=== PATIENT | female | born 1965 | race Caucasian/White ===

== ENCOUNTER → 2018-09-24 | Outpatient (CLI) | payer OTHER | LOC: M.RAD 14:18 | DX: N63.11 Unspecified lump in the right breast, upper outer quadrant (principal) ==

== ENCOUNTER → 2018-09-25 | Outpatient (CLI) | payer OTHER ==
--- NOTE | 2018-10-01 18:06 | PATH ---
[address] [address] PATHOLOGY RPT PROCEDURE Name: BRIELLE POE Room: [facility].#: [id number] Admission: 09/25/18 Date of : 63 Discharge: Report #: [id number] Path Case #: [id number] [facility] Accession Number: [id number] . 01 Material submitted: . PART A: RIGHT AXILLARY NODE PART B: RIGHT BREAST . 01 Clinical history: . A. 3.4 x 1.8 x 2.1 cm mass B. 4.0 x 3.4 x 3.8 cm mass, 10:00, 8 cm from nipple . 02 Diagnosis: A. Right axillary node, image guided core biopsy: - METASTATIC HIGH-GRADE CARCINOMA COMPATIBLE WITH PLEOMORPHIC LOBULAR CARCINOMA SPANNING AT LEAST 11 MM. - Fragments of benign skeletal muscle. See comment. . B. Right breast, 10:00, 8 cm from nipple, image-guided core biopsies: - PLEOMORPHIC LOBULAR CARCINOMA, HIGH GRADE (III OF III), SPANNING AT LEAST 11 MM. SEE COMMENT. (ARON:hilda; 09/30/2018) . . . QMS/09/30/2018 . 02 Comment: Specimen B: . Specimen type: Image-guided core biopsy Tumor site: Right breast 10:00, 8 cm from nipple Tumor quantitation: Approximately 95% of submitted tissues Histologic type: Pleomorphic lobular carcinoma Histologic grade: III of III Tubules, nuclei and mitoses: 3, 2, 3 LVSI: Not identified Microcalcifications: Not identified Markers: Breast tumor profile pending Block: B2 . In the right axilla node (A), there is very scant lymphoid tissue present without definite extranodal extension seen and the tumor has identical histologic features to that seen in specimen B with several foci suggesting lower grade lobular features. In the right breast biopsy (B), nearly all of the submitted tissues represents invasive neoplasm without non-neoplastic breast epithelial tissues seen. No DCIS or LCIS is seen. Properly controlled immunohistochemical stains performed [place] [address] PATHOLOGY RPT PROCEDURE Name: BRIELLE POE Room: [facility] KEVEN Nielsen#: [id number] Admission: 09/25/18 Date of : 63 Discharge: Report #: [id number] Path Case #: [id number] neoplastic cells to have the following characteristics supporting the classification: . E-cadherin: Negative. Keratin KEL: Positive. . Breast tumor profile studies are pending on B2 and will be the subject of an addendum report. Preliminary findings relayed to Debbi ([facility]) at approximately 10:15 on 09/29/2018. Specimens A and B reviewed with Dr. Jimmy Calvillo who agrees with the diagnoses. (ARON:hilda; 09/30/2018) . 02 Addendum: . Special studies report received from [facility], [address] [place] [address], [address], [place], [address], on case [id number], labeled with their number [id number], dated 10/01/2018. . Breast/Prognostic Marker Analysis . Specimen Site: Right Breast, 10:00 (Biopsy), Pleomorphic Lobular Carcinoma . Specimen ID #: [id number] . ER (Estrogen Receptor) Present/Positive Percent: 95.00% Analysis: Manual Comments: Staining Intensity: Moderate-strong. . VT (Progesterone Receptor) Present/Positive Percent: 70.00% Analysis: Manual Comments: Staining Intensity: Variable (weak-strong). . HER2 Not Over-Expressed Score: 1+ Analysis: Manual . Ki-67 High Proliferation Percent: 50.00% Analysis: Manual . Time to Fixation (Cold Ischemic Time): Immediate Duration of Fixation: Not Provided Type of Fixative: 10% [place] [address] PATHOLOGY RPT PROCEDURE Name: BRIELLE POE Room: [facility] Nielsen#: [id number] Admission: 09/25/18 Date of : 63 Discharge: Report #: [id number] Path Case #: [id number] . at [facility] [place]. Anastacio Montague M.D. Pathologist . . Methodology The HER2 Receptor protein expression is analyzed using the [place] HER2 rabbit monoclonal antibody (clone 4B5). This assay is used for diagnostic determination of the HER2 protein over-expression in paraffin embedded, formalin fixed breast cancer tissue on the [place] Benchmark. The specimen is processed using a polymer detection system. The membrane staining of the tumor is determined either by manual score or image analysis. This antibody is intended for in vitro diagnostic use. The score is reported as per package insert; 0, 1+, 2+, and 3+. This test is used for clinical purposes. . A rabbit monoclonal antibody (clone SP1) that recognized the Estrogen Receptor is used to perform immunohistochemistry on routinely fixed (formalin) paraffin embedded tissue on the [place] Benchmark. The specimen is processed using a polymer detection system. The percentage of stained tumor nuclei is determined either manually or by image analysis. This test is intended for in vitro diagnostic use. This test is used for clinical purposes. . A rabbit monoclonal antibody (clone 1E2) that recognized the Progesterone Receptor is used to perform immunohistochemistry on routinely fixed (formalin) paraffin embedded tissue on the [place] Benchmark. The specimen is processed using a polymer detection system. The percentage of stained tumor nuclei is determined either manually or by image analysis. This test is intended for in vitro diagnostic use. This test is used for clinical purposes. . A rabbit monoclonal antibody (clone 30-9) that recognized Ki67 is used to perform immunohistochemistry on routinely fixed (formalin) paraffin embedded tissue on the [place] Benchmark. The specimen is processed using a polymer detection system. The percentage of stained tumor nuclei is determined either manually or by image analysis. This test is intended for in vitro diagnostic use. This test is used for clinical purposes. . Intended Use: This antibody is intended for in vitro diagnostic (IVD) use. HER2 (4B5) is a rabbit monoclonal antibody intended for the semi-quantitative detection of HER2 antigen in sections of formalin-fixed, paraffin embedded normal and neoplastic tissue. . This antibody is intended for in vitro diagnostic (IVD) use. Estrogen Receptor (ER) (SP1) is a rabbit monoclonal antibody (IgG) [place] [address] PATHOLOGY RPT PROCEDURE Name: BRIELLE POE Room: [facility]#: [id number] Admission: 09/25/18 Date of : 63 Discharge: Report #: [id number] Path Case #: [id number] for the qualitative detection of estrogen receptor (ER) antigen in sections of formalin-fixed, paraffin-embedded tissue. ER is a rabbit monoclonal antibody that recognizes human estrogen receptor alpha. . This antibody is intended for in vitro diagnostic (IVD) use. Progesterone Receptor (VT) (1E2) is a rabbit monoclonal antibody (IgG) that is intended for the qualitative detection of progesterone receptor (VT) antigen in sections of formalin fixed, paraffin embedded tissue. VT is a rabbit monoclonal antibody that recognizes the A and B forms of the human progesterone receptor. . This antibody is intended for in vitro diagnostic (IVD) use. Ki-67 (30-9) is a rabbit monoclonal antibody (IgG) directed against C-terminal portion of Ki-67 antigen. Staining for Ki-67 can be used to aid in assessing the proliferative activity of normal and neoplastic tissue. Ki-67 is a nuclear protein expressed in proliferating cells. During the cell cycle, the Ki-67 antigen is present in the G1, S, G2 and M phase but is absent in the G0 (quiescent phase). . . Disclaimer: This Test was performed by [facility]. at [address], [place] [address], [place], [address]. . [facility] is a business unit of [facility]. a wholly-owned subsidiary of [employer]. . This assay has not been validated on decalcified tissues. Results should be interpreted with caution if this specimen was decalcified given the likelihood of false negativity on decalcified specimens. . Any image(s) that accompany this report is/are a insurance service representative image(s) only and should not be used to render a diagnosis. . This interpretation is contingent on the specimen and the clinical information received. . For any special tests/stains performed, known positive cells or tissues are tested with each marker and examined to ensure positivity. Positive and negative internal controls, if present, react appropriately. . This analysis is an adjunct to the evaluation of the referring physician and does not represent a final diagnosis. . The immunohistochemistry tests performed at [facility]. were validated on tissue fixed in 10% neutral buffered formalin. The performance characteristics of the tests performed on tissue processed in other [place] [address] PATHOLOGY RPT PROCEDURE Name: BRIELLE POE Room: [facility] Morales#: [id number] Admission: 09/25/18 Date of : 63 Discharge: Report #: [id number] Path Case #: [id number] . . HER2 testing at [facility] is performed in compliance with the 2018 updated ASCO/CAP Clinical Practice Guideline Focused Update. If the result is EQUIVOCAL (2+), it must be confirmed by an alternative assay such as FISH or Dual JOSÉ LUIS. REF: Hugo GUO, RICARDO Soto et al: Human Epidermal Growth Factor Receptor 2 Testing in Breast Cancer: ASCO/CAP Clinical Practice Guideline Focused Update. J Clin Oncol 36:4423-5282, 2018. . HER2 and ER/VT ASCO/CAP guidelines require fixation in neutral buffered formalin for a minimum of 6 and a maximum of 72 hours. Fixation times less than 6 hours may not adequately preserve cell proteins. Fixation times longer than 72 hours may cause excess cross-linking of proteins reducing the antigen available for staining. Either scenario can cause reduced staining; hence false negative results are possible and should be considered for these situations if the HER2 IHC score is less than 3+ or ER or VT is negative (no staining or <1% positive). It is recommended that specimens fixed longer than 72 hours with HER2 IHC scores less than 3+ be confirmed by HER2 FISH or Dual JOSÉ LUIS. The time from biopsy/excision to fixation in formalin (cold ischemic time) must be less than 1 hour. Time to fixation (cold ischemic time) greater than 1 hour should be interpreted with caution. HER2 testing, mainly HER2 by FISH, is particularly vulnerable since excessive cold ischemic time results in preferential loss of HER2 probe signals that may lead to false negative results. . SCORE STAINING PATTERN IN TUMOR CELLS INTERPRETATION RESULTS 0 No staining observed or incomplete, faint membrane staining in less than or equal to 10% of tumor cells. Negative 1+ Incomplete, faint membrane staining in greater than 10% of tumor cells. Negative 2+ Incomplete and/or weak/moderate circumferential membrane staining in greater than 10% of the invasive tumor cells or complete, circumferential, intense alternative assay staining in less than or equal to 10% of invasive tumor cells. Equivocal* *Must be confirmed by alternative assay (IHC/FISH/Dual JOSÉ LUIS) 3+ Intense, complete membrane staining in greater than 10% of tumor cells. Positive . A complete copy of the report is on file. . [employer] and [place] [address] PATHOLOGY RPT PROCEDURE Name: BRIELLE POE Room: [facility]#: [id number] Admission: 09/25/18 Date of : 63 Discharge: Report #: [id number] Path Case #: [id number] Inc[facility] at [address], [place] [address]. . ([facility] 10/01/2018) . LBQ/10/01/2018 Addendum Electronically Signed by Salbador Novoa MD, Pathologist . 02 Electronically signed: . Salbador Novoa MD, Pathologist NPI- [id number] . 01 Gross description: . A. Received in formalin labeled "Brielle Poe, right axilla node," are multiple needle cores of yellow-fung fibrofatty tissue measuring 1.3 x 0.5 x 0.2 cm in aggregate dimensions. The tissue is submitted in its entirety in cassettes A1 through A3. The cold ischemic time is less than 1 minute. The total formalin fixation time is 26 hours and 35 minutes. . B. Received in formalin labeled "Brielle Poe, right breast 10:00 8 cm FN," are multiple needle cores of yellow-fung fibrofatty tissue measuring 1.1 x 0.4 x 0.2 cm in aggregate dimensions. The tissue is submitted in its entirety in cassettes B1 through B3. The cold ischemic time is less than 1 minute. The total formalin fixation time is 28 hours and 5 minutes. (TSD; 09/25/2018) TOB/TOB . 02 Pathologist provided ICD-10: C77.3, C50.011 . 02 CPT . 277002, 345583, Y04952, J11625 Specimen Comment: A courtesy copy of this report has been sent to Specimen Comment: [phone], , , . Specimen Comment: Report sent to ,DR LIND,DR JOSUE / DR BURGESS Specimen Comment: A duplicate report has been generated due to demographic updates. Performed at: 01 [facility] [address], [place], [place] [id number] MD Avelino Matthews MD Phone: [phone] Performed at: [address] [facility] [address] [place], [place] [id number] MD Salbador Novoa MD Phone: [phone]
== END | disposition home or self-care (01) ==
LOC: M.ULTRA 12:38
DX: C50.911 Malignant neoplasm of unspecified site of right female breast (principal); C77.3 Secondary and unspecified malignant neoplasm of axilla and upper limb lymph nodes; R92.1 Mammographic calcification found on diagnostic imaging of breast; R59.0 Localized enlarged lymph nodes

== ENCOUNTER → 2018-10-10 | Outpatient (CLI) | payer OTHER ==
--- NOTE | 2018-10-12 15:21 | ONC ---
[place] [address] RADIATION ONCOLOGY NOTE Name: MANOJ POE Room: [facility]#: [id number] Admission: 10/10/18 Attend Phys: Wesley Segura MD Discharge: Date of : 63 Report #: [id number] THIS REPORT FOR: //name// CC: Wesley Meneses MD DATE OF CONSULTATION: 10/10/2018 REFERRING PHYSICIANS: Dr. Rhodes, Dr. Junie Ferrera and Dr. Flavio Meneses. [facility] phone is [phone]. PRIMARY SITE AND HISTOPATHOLOGY: The patient has a lobular cancer involving the right breast and also the right axillary lymph node area. The patient, at this point, has at least a IIb breast cancer. HISTORY OF PRESENT ILLNESS: The patient is a 53-year-old woman who palpated a mass involving the right breast and right axilla around July 2018. She went on to undergo a bilateral mammogram on 09/24/2018, which revealed a lobular mass involving the upper outer right breast that measured about 3.9 cm. x 4.3 cm. She had a right breast ultrasound on 09/24/2018, which revealed a right breast mass that measured about 4.5 cm. x 3.7 cm. x 3.1 cm as well as abnormal lymph nodes in the axilla that measured about 3.5 cm. x 2 cm. The patient went on to undergo a biopsy of the right breast mass and the right axillary lymph node on 09/25/2018 and the pathology revealed a pleomorphic lobular carcinoma that was high grade (grade 3/3)involving the right breast and there was also involvement of the right axillary lymph node consistent with metastatic high-grade carcinoma that measured at least 1.1 cm. The breast cancer was 95% estrogen receptor positive, 70% progesterone receptor positive and HER2/aguila negative. The patient indicated that the tentative plan is to proceed with neoadjuvant chemotherapy and then proceed with surgical resection of the breast. She presents to discuss the role of radiation therapy. PAST MEDICAL HISTORY AND PAST SURGICAL HISTORY: She had seizures from age 8 to age 12 and the seizures stopped after that time. MEDICATIONS: None. ALLERGIES: PHENOBARBITAL. OBSTETRICS AND GYNECOLOGIC HISTORY: Menarche at age 12, menopause around 2006 and she is 2, para 2. FAMILY HISTORY: Maternal aunt had lymphoma. [place] [address] RADIATION ONCOLOGY NOTE Name: MANOJ POE Room: [facility]#: [id number] Admission: 10/10/18 Attend Phys: Wesley Segura MD Discharge: Date of : 63 Report #: [id number]. Paternal grandfather had bladder cancer. Paternal uncle had pancreatic cancer and another paternal uncle had prostate cancer and a male cousin had chronic myeloid leukemia. 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 She is . She has a son and a daughter. The son is 36 years of age and the daughter is 26 years of age. Ethanol: she rarely drinks alcohol-containing beverages. Cigarettes: she does not smoke. REVIEW OF SYSTEMS: GENERAL: The patient denied having any fevers or chills. SKIN: The patient denied having color changes or itching. LYMPH NODES: The patient had some enlarged right axillary lymph nodes. ENDOCRINE: She denied having any hot or cold intolerance. HEMATOLOGY AND IMMUNOLOGY: The patient denied having any anemia. MUSCULOSKELETAL: She denied having any arthritis, painful or swollen joints. HEAD AND NECK: She denied having any headaches, migraines. RESPIRATORY: She denied having any shortness of breath. CARDIOVASCULAR: She denied having any palpitations. GASTROINTESTINAL: She denied having any nausea or vomiting. NEUROLOGIC: She denied having any focal weakness. PHYSICAL EXAMINATION: With my nurse, Zoey Cerna, present: VITAL SIGNS: Height 5 feet 5 inches, weight 218 pounds. Blood pressure 173/77, which the patient attributed partly to being at the physician's office, pulse 72, respirations 16, oxygen saturation 97%. GENERAL AND PSYCHIATRIC: The patient was alert, oriented, and in no acute distress. LYMPH NODES: She has palpable right axillary lymphadenopathy that measured about 2.5 cm. x 2 cm. EYES: Pupils were equal, round, reactive to light and accommodation. Extraocular movements were intact. HEAD, EARS, NOSE AND THROAT: Mouth had no visible lesions. HEART: Had a regular rate and rhythm without murmur. LUNGS: were clear to auscultation. BREASTS: Right breast had a palpable mass in the upper outer quadrant that measured about 5.5 cm. x 3 cm. x 2 cm. ABDOMEN: Not tender. Spleen was not palpable. Liver was at the costal margin. EXTREMITIES: Had no clubbing, cyanosis or edema. NEUROLOGIC: Cranial nerves II to XII were intact. Sensation was intact. The patient had 5/5 strength in her extremities. ASSESSMENT AND PLAN: The patient has a locally [place] [address] RADIATION ONCOLOGY NOTE Name: MANOJ POE Room: [facility] Morales#: [id number] Admission: 10/10/18 Attend Phys: Wesley Segura MD Discharge: Date of : 63 Report #: [id number] She is being set up for neoadjuvant chemotherapy followed by surgical resection and she was then offered postoperative radiation therapy to either the breast or the chest wall. If she does have a good response to the chemotherapy and she undergoes breast conservation therapy, the efficacy of radiation therapy can be found in the study where Dr. Tucker was the author in 2003 in the Journal of Clinical Oncology. In that study, 340 patients treated with neoadjuvant chemotherapy and breast conservation therapy had a local failure rate of 5% in 5 years, which was deemed to be reasonable. If she undergoes mastectomy, she will be offered radiation therapy to the chest wall and regional lymph nodes, which is based on the Setswana 82c study, which randomized postmenopausal patients between tamoxifen alone versus tamoxifen and radiation therapy. The local failure rate was reduced from 35% to 8% when they received radiation therapy and the overall survival was increased from 36% to 45%. So, the risks, benefits, logistics of radiation therapy were explained to the patient in detail. The patient gave her witnessed, informed consent to proceed with radiation therapy. She is proceeding with neoadjuvant chemotherapy followed by surgery, so she was asked to make a followup appointment to see me in about 3-5 months. At that time, the timing of her radiation therapy can be determined. Thank you very much for this consult. <ELECTRONICALLY SIGNED> By: Wesley Segura MD 10/12/18 1521 [id number] [id number] fifi Garcia
== END ==
LOC: M.RTH 04:34
DX: C50.911 Malignant neoplasm of unspecified site of right female breast (principal); Z88.8 Allergy status to other drugs, medicaments and biological substances; Z72.89 Other problems related to lifestyle

== ENCOUNTER → 2018-10-15 | Outpatient (CLI) | payer OTHER ==
[~2018-10-15] MED LIST: TRAMADOL 50 MG50 MG PO
--- NOTE | 2018-10-15 15:06 | 2DMMODE ---
[place] [address] 2 D/M-MODE ECHOCARDIOGRAM Name: MANOJ POE Room: [facility]#: [id number] Admission: 10/15/18 Attend Phys: Junie Ferrera, Discharge: Date of : 63 Date of Service: 10/15/18 1506 Report #: [id number] THIS REPORT FOR: //name// APPROVED REPORT Study performed: 10/15/2018 13:43:24 EXAM: Limited 2D Echocardiogram Patient Location: Out-Patient BSA: 2.04 HR: 93 bpm BP: 160/65 mmHg Other Information Study Quality: Good Indications Chemo 2D Dimensions IVSd: 10.80 (7-11mm) LVDd: 43.27 mm PWd: 9.79 (7-11mm) LVDs: 23.75 (25-40mm) Aortic Root: 23.93 mm Left Ventricle The left ventricle is normal size. There is normal LV segmental wall motion. There is normal left ventricular wall thickness. Left ventricular systolic function is normal. The left ventricular ejection fraction is within the normal range. LVEF is 55-60%. Right Ventricle The right ventricle is normal size. The right ventricular systolic function is normal. Atria The left atrium size is normal. The right atrium size is normal. Aortic Valve The aortic valve is normal in structure. Mitral Valve The mitral valve [place] [address] 2 D/M-MODE ECHOCARDIOGRAM Name: MANOJ POE Room: [facility]#: [id number] Admission: 10/15/18 Attend Phys: Junie Ferrera, Discharge: Date of : 63 Date of Service: 10/15/18 1506 Report #: [id number] Tricuspid Valve The tricuspid valve is normal in structure. Pulmonic Valve Pulmonic valve is not well visualized. Great Vessels The aortic root is normal in size. Pericardium There is no pericardial effusion. <Conclusion> Left ventricular systolic function is normal. The left ventricular ejection fraction is within the normal range. <ELECTRONICALLY SIGNED> By: Hussain Ohara MD, FACC 10/15/18 1506 1506 150 Hussain Ohara MD, FACC /INF
== END ==
LOC: M.MRI 10-14 16:30 → M.CRD 13:35 → M.MRI 14:30
DX: Z51.11 Encounter for antineoplastic chemotherapy (principal); C50.411 Malignant neoplasm of upper-outer quadrant of right female breast; Z17.0 Estrogen receptor positive status [ER+]

== ENCOUNTER → 2018-10-16 | Day surgery (SDC) | payer OTHER ==
[~2018-10-16] MED LIST changes: +ONDANSETRON HCL4 M2 PO
--- NOTE | 2018-10-16 14:36 | OP ---
[address] [address] OPERATIVE REPORT Name: MANOJ POE Room: [facility].#: [id number] Admission: 10/16/18 Attend Phys: Junie Ferrera DO Discharge: Date of : 63 Report #: [id number] THIS REPORT FOR: //name// CC: Junie Rhodes DO DICTATED BY: Tobi Alcantara DO PREOPERATIVE DIAGNOSIS: Right breast cancer. POSTOPERATIVE DIAGNOSIS: Right breast cancer. SURGEONS: Junie Ferrera DO, and Tobi Alcantara, PGY2. BONDING MACHINE OPERATOR: Royal, PGY-1. OPERATION PERFORMED: Left internal jugular ultrasound-guided chemo port placement under fluoroscopy with surgeon's interpretation of images. ANESTHESIA: General and local. ESTIMATED BLOOD LOSS: 5. SPECIMENS REMOVED: None. FINDINGS: Normal neck anatomy. COMPLICATIONS: None. IMPLANTS: Right internal jugular PowerPort. HISTORY OF PRESENT ILLNESS: The patient is a 53-year-old female with recent diagnosis of right breast cancer and it was decided that she should undergo neoadjuvant chemotherapy and therefore needed chemo port placement. Risks and complications were discussed at length and she agreed to proceed with surgery. DESCRIPTION OF PROCEDURE: After consent was obtained, the patient was taken to the operating room and placed in supine position. SCDs applied to bilateral lower extremities, safety belt placed across the patient's waist. Two grams Ancef given for surgical prophylaxis. General anesthesia was administered without any complication. The patient was intubated and then prepped and draped in a standard sterile fashion. After timeout was performed, the patient was placed in a slight 30 degrees of Trendelenburg. Ultrasound was used to visualize the left internal jugular vein. It could be seen just superior to the carotid artery. Introducer needle was inserted into the vein. There was good venous outflow. Wire was passed through the needle. [place] [address] OPERATIVE REPORT Name: MANOJ POE Room: [facility]#: [id number] Admission: 10/16/18 Attend Phys: Junie Ferrera DO Discharge: Date of : 63 Report #: [id number] and the wire could be seen crossing over into the superior vena cava. At this time, attention was turned towards creating a subcutaneous pocket in the left chest. A 15 blade scalpel was used to make a 4 cm incision in a transverse fashion. Electrocautery was used to dissect down to the level of pectoralis fascia. Once the pocket was created with blunt dissection, attention was turned back towards the neck. The breakaway dilator sheath was advanced over the wire and into the left internal jugular vein. The catheter was broken away as the PowerPort catheter was inserted. The catheter was then tunneled over the clavicle and into the previously created pocket in the left chest. PowerPort was then sutured in place and the catheter was attached to the PowerPort. PowerPort was flushed with normal saline after being aspirated, showing a good venous blood return. 3 mL of premixed heparin solution was then injected into the PowerPort. Fluoroscopy was again obtained, showing good position just above the superior vena cava. There were no kinks in the tubing. The port was placed within the subcutaneous pocket. The subcutaneous tissue was closed with 3-0 Vicryl and skin with 4-0 Monocryl. Sterile dressing was applied over top. The patient tolerated the procedure well. Postoperative chest x-ray revealed that everything was in good position. There was no evidence of pneumothorax and the tip of the catheter was seen to be intact in the superior vena cava. <ELECTRONICALLY SIGNED> By: Junie Ferrera DO 10/16/18 1436 1307 1329Chdary Ferrera DO /nt
== END | disposition home or self-care (01) ==
LOC: M.SUR
DX: Z45.2 Encounter for adjustment and management of vascular access device (principal); C50.911 Malignant neoplasm of unspecified site of right female breast; Z88.8 Allergy status to other drugs, medicaments and biological substances

== ENCOUNTER → 2018-10-22 | Outpatient (CLI) | payer OTHER | END | disposition home or self-care (01) | LOC: M.ULTRA 12:49 | DX: N63.20 Unspecified lump in the left breast, unspecified quadrant (principal); Z88.8 Allergy status to other drugs, medicaments and biological substances ==

== ENCOUNTER → 2018-10-28 | Outpatient (CLI) | payer OTHER ==
--- NOTE | 2018-10-27 11:06 | PATH ---
[address] [address] PATHOLOGY RPT PROCEDURE Name: BRIELLE POE Room: [facility] M.R.#: [id number] Admission: Date of : 63 Discharge: Report #: [id number] Path Case #: [id number] [facility] Accession Number: [id number] . 01 Material submitted: . LEFT BREAST . 01 Clinical history: . 1.7 x 1.1 x 1.4 cm 12:00, 3 cm from nipple. Hx lobular in right breast . 02 Diagnosis: Left breast, 12:00, 3 cm from nipple, image-guided core biopsies: - Fibroadenoma(s) with calcifications and benign breast tissue with usual ductal epithelial hyperplasia, duct ectasia, fibrosis, mild chronic inflammation and luminal calcifications, negative for atypia. See comment. . (ARON:at;10/24/2018) QTA/10/24/2018 . 02 Comment: Multiple cores show fibroadenoma, possibly several immediately adjacent. Reviewed with Dr. Jimmy Calvillo who agrees with the diagnosis. . (ARON:at;10/24/2018) . 02 Electronically signed: . Salbador Novoa MD, Pathologist NPI- [id number] . 01 Gross description: . Received in formalin labeled "Brielle Poe, left breast 12:00, 3 cm fn," are multiple needle cores of yellow-fung fibrofatty tissue measuring 2.7 x 2.8 x 0.5 cm in aggregate dimensions. The tissue is submitted in its entirety in cassettes A1 through A3. The cold ischemic time is less than 1 minute. The total formalin fixation time is 28 hours and 44 minutes. (TSD/at; 10/22/2018) TOB/TOB . 02 Pathologist provided ICD-10: D24.2, N62, N60.42, N60.32, N61.0 . 02 CPT . 688133 Specimen Comment: A courtesy copy of this report has been sent to Specimen Comment: [phone], , , . Specimen Comment: Report sent to ,DR LIND,DR BROUSSARD / [place] [address] PATHOLOGY RPT PROCEDURE Name: BRIELLE POE Room: [facility].#: [id number] Admission: Date of : 63 Discharge: Report #: [id number] Path Case #: [id number] Specimen Comment: A duplicate report has been generated due to demographic updates. Performed at: 01 [facility] [address], [place], [place] [id number] MD Avelino Matthews MD Phone: [phone] Performed at: [address] [facility] [address] [place]SE[place] Guevara [id number] MD Salbador Novoa MD Phone: [phone]
[~2018-10-28] MED LIST changes: -ONDANSETRON HCL4 M2 PO
== END ==
LOC: M.NUC 11:05
DX: C50.411 Malignant neoplasm of upper-outer quadrant of right female breast (principal); Z17.0 Estrogen receptor positive status [ER+]

== ENCOUNTER 2018-10-31 19:50 | Inpatient (IN) | payer OTHER ==
[~2018-10-31] VITALS: Ht 165.1 cm; Wt 99.8 kg
[2018-10-31 20:01] VITALS: BP 197/76
[2018-10-31] MEDS ORDERED: ONDANSETRON HCL4 M2 PO (20:07)
[2018-10-31 21:01] LABS: HEMATOCRIT 34.3 % (37.0-47.0); HEMOGLOBIN 11.5 gm/dL (12.0-15.0); MCH 28.1 pg (26.0-34.0); MCHC 33.5 g/dL (28.0-37.0); MCV 83.9 fL (80.0-100.0); MPV 9.5 fl. (7.2-11.1); NUCLEATED RBCS 0 /100WBC; PLATELET COUNT* 93 thou/uL (150-400); RBC 4.08 mil/uL (4.20-5.00); WBC 2.6 thou/uL (4.0-11.0)
[2018-10-31 21:09] LABS: ANION GAP 4 mmol/L (7-16); BUN 14 mg/dL (7-18); CALCIUM 8.4 mg/dL (8.5-10.1); CHLORIDE 101 mmol/L (98-107); CO2 26 mmol/L (21-32); CREATININE 0.8 mg/dL (0.6-1.3); GLUCOSE 118 mg/dL (70-99); POTASSIUM 3.6 mmol/L (3.5-5.1); PROTIME 10.5 Seconds (9.20-11.50); SODIUM 131 mmol/L (136-145)
[2018-10-31 21:19] LABS: ALKALINE PHOSPHATASE 122 U/L (46-116); LIPASE 166 U/L (73-393); NT-PRO BRAIN NAT PEPTIDE 86 pg/mL (<300); SGOT 12 U/L (15-37); SGPT 19 U/L (30-65); TOTAL BILIRUBIN 0.2 mg/dL (<0.1-1.0); TOTAL PROTEIN 7.3 g/dL (6.4-8.2); TROPONIN-I LEVEL <0.06 ng/mL (<0.06)
[2018-10-31 21:33] LABS: ABSOLUTE EOSINOPHILS 0.1 thou/uL (0.0-0.7); ABSOLUTE LYMPHOCYTES 0.8 thou/uL (0.8-5.3); ABSOLUTE MONOCYTES 0.3 thou/uL (0.0-1.2); ABSOLUTE NEUTROPHILS 1.4 thou/uL (1.6-8.1); ATYPICAL LYMPHS 1 %; METAMYELOCYTES 5 %; MYELOCYTES 2 %; PLATELET ESTIMATE DECREASED
[2018-10-31 22:01] LABS: URINE BILIRUBIN NEGATIVE (Negative); URINE BLOOD 1+ (Negative); URINE CLARITY CLEAR; URINE COLOR YELLOW; URINE GLUCOSE-RANDOM NEGATIVE (Negative); URINE KETONES NEGATIVE (Negative); URINE LEUKOCYTES-REFLEX NEGATIVE (Negative); URINE NITRITE-REFLEX NEGATIVE (Negative); URINE PROTEIN NEGATIVE (Negative); URINE UROBILINOGEN 0.2 E.U./dl (0.2-1.0)
[2018-10-31 22:15] LABS: SQUAMOUS 4-10 Moderate /LPF (0-3)
[2018-10-31 22:16] LABS: URINE RBC 0-2 Rare /HPF (0-2)
[2018-10-31 22:17] LABS: BACTERIA-REFLEX None Seen /HPF (None Seen); MUCUS None Seen strn/LPF (None Seen)
[2018-10-31 22:18] LABS: CASTS None Seen /LPF (None Seen); CRYSTALS None Seen /LPF (None Seen)
[2018-10-31 22:19] LABS: URINE WBC-REFLEX None Seen /HPF (0-5)
[2018-10-31 22:59] VITALS: BP 147/60
[2018-10-31 23:45] VITALS: BP 126/60
[2018-11-01 04:00] VITALS: BP 149/78
--- NOTE | 2018-11-01 05:13 | NUR ---
RECEIVED REPORT FROM ED RN. PT TRANSFERRED TO 223. PT A&OX4. VSS. ADMISSION HISTORY & PHYSICAL ASSESSMENT COMPLETED AND CHARTED. FALL FORM SIGNED. ORIENTED TO ROOM & CALL LIGHT. PT ON RA WITH 95% O2 SAT. PT TRACING SR ON TELE. PT DENIES ANY PAIN OR DISCOMFORT. PT RESTED WELL ON BED. CALL LIGHT WITHIN REACH.
[2018-11-01 08:00] VITALS: BP 171/78
[2018-11-01 11:55] VITALS: BP 128/68
[2018-11-01 16:20] VITALS: BP 145/81
--- NOTE | 2018-11-01 18:42 | NUR ---
ASSUMED PT CARE AT 0730, FULL ASSESMENT DONE CHARTED, PT A/O X4, DENIES PAIN, WANTS TO GO HOME. PT HOPEFUL TO DISCHARGE SATURDAY. UP AD CARO, VSS, AFEBRILE, SR ON THE MONITOR.
[2018-11-02] VITALS: BP 157/71
[2018-11-02 04:00] VITALS: BP 143/69
--- NOTE | 2018-11-02 04:14 | NUR ---
VITALS WNL. SEE MAR. SEE CHARTING. HOURLY ROUNDING FOR SAFETY.
[2018-11-02 07:35] VITALS: BP 173/78
[2018-11-02 08:14] VITALS: BP 173/78
--- NOTE | 2018-11-03 10:58 | EKG ---
[place] [address] ELECTROCARDIOGRAM REPORT Name: MANOJ POE Room: [address] M.R.#: [id number] Admission: 10/31/18 Attend Phys: Jorge Shetty MD Discharge: 11/02/18 Date of : 63 Report #: [id number] THIS REPORT FOR: //name// [facility] ED Test Date: 2018-10-31 Test Time: 20:08:11 Pat Name: MANOJ POE Department: Room: [facility] Gender: F Manuscript Reader: : 1965 Requested By: Jatin Mejia Order Number: [id number] MD: Jayson Gutiérrez Measurements Intervals [place] Rate: 97 P: 37 NE: 153 QRS: 61 QRSD: 81 T: 61 QT: 330 QTc: 419 Interpretive Statements Sinus rhythm No previous ECG available for comparison Electronically Signed On 11-03-2018 10:58:46 CASH PROCESSOR by Jayson Gutiérrez [email or web address] <ELECTRONICALLY SIGNED> By: Jayson Gutiérrez MD, [facility] 11/03/18 1058 07 07 Jayson Gutiérrez MD, FACC /EPI
== END 2018-11-02 09:35 | disposition home or self-care (01) | DRG 810 ==
LOC: M.ERS 19:50 → M.TBA-ER 21:44 → M.2W 23:01
PROVIDERS: Family Medicine; ADMIT Internal Medicine
DX: D70.9 Neutropenia, unspecified (principal); R50.81 Fever presenting with conditions classified elsewhere; I10 Essential (primary) hypertension; C50.919 Malignant neoplasm of unspecified site of unspecified female breast; Z88.8 Allergy status to other drugs, medicaments and biological substances; Z92.21 Personal history of antineoplastic chemotherapy

== ENCOUNTER → 2018-12-04 | Outpatient (CLI) | payer OTHER ==
[~2018-12-04] MED LIST changes: +ONDANSETRON HCL4 M2 PO
== END ==
LOC: M.ULTRA 12:40
DX: C50.411 Malignant neoplasm of upper-outer quadrant of right female breast (principal); D64.81 Anemia due to antineoplastic chemotherapy; T45.1X5A Adverse effect of antineoplastic and immunosuppressive drugs, initial encounter; L27.1 Localized skin eruption due to drugs and medicaments taken internally; Z17.0 Estrogen receptor positive status [ER+]

== ENCOUNTER → 2019-01-13 | Outpatient (CLI) | payer OTHER | LOC: M.ULTRA 13:00 | DX: C50.411 Malignant neoplasm of upper-outer quadrant of right female breast (principal); N63.11 Unspecified lump in the right breast, upper outer quadrant; D64.81 Anemia due to antineoplastic chemotherapy; T45.1X5A Adverse effect of antineoplastic and immunosuppressive drugs, initial encounter; Z17.0 Estrogen receptor positive status [ER+] ==

== ENCOUNTER → 2019-03-24 | Outpatient (CLI) | payer OTHER ==
[~2019-03-24] MED LIST changes: +NORVASC5 MG PO
== END ==
LOC: M.MRI 16:12
DX: C50.911 Malignant neoplasm of unspecified site of right female breast (principal)

== ENCOUNTER 2019-04-24 08:31 | Observation (INO) | payer OTHER ==
[~2019-04-24] VITALS: Ht 165.1 cm; Wt 102.1 kg
--- NOTE | ~2019-04-24 | OP ---
[address] [address] OPERATIVE REPORT Name: MANOJ POE Room: [address] Bart Nielsen#: [id number] Admission: 04/24/19 Attend Phys: Junie Ferrera DO Discharge: 04/25/19 Date of : 63 Report #: [id number] THIS REPORT FOR: //name// CC: Junie Rhodes DATE OF SERVICE: 04/24/2019 PREOPERATIVE DIAGNOSIS: Right breast lobular carcinoma with metastasis to the lymph nodes. POSTOPERATIVE DIAGNOSIS: Right breast lobular carcinoma with metastasis to the lymph nodes. FINDINGS: Multiple palpable lymph nodes in the right axilla. SURGEON: Junie Ferrera DO. COSURGEON: Dr. Win and Dr. Martinez. PROCEDURE PERFORMED: Bilateral simple mastectomies, right axillary sentinel lymph node biopsy of the clipped and wire localized axillary lymph node with completion right axillary lymph node dissection. ANESTHESIA: General and local. ESTIMATED BLOOD LOSS: 100 mL. SPECIMENS: Left breast, right breast, right sentinel lymph node, right clipped axillary lymph node and completion axillary node dissection. COMPLICATIONS: None. CONDITION: Stable. DISPOSITION: PACU to the floor. DRAINS: Two drains on the right. The white 15-Congolese drain is in the axilla. The clear 15-Congolese drain is in the breast subcutaneous flap. Left breast has a 15-Congolese KAIDEN drain in the subcutaneous flap. HISTORY OF PRESENT ILLNESS: The patient is a very pleasant female who is well known to me from her previous diagnosis of right breast cancer, which had been found to be metastatic to the axilla. She underwent biopsies of both these areas and when they returned as positive, she then underwent neoadjuvant chemotherapy. She returned to my office after completing her neoadjuvant [facility] [address] [place] [address] OPERATIVE REPORT Name: DEEPIKAMANOJ RON Room: [address] ANDRES Nielsen#: [id number] Admission: 04/24/19 Attend Phys: Junie Ferrera DO Discharge: 04/25/19 Date of : 63 Report #: [id number] chemotherapy. Repeat radiological studies were completed, which showed great improvement in the mass of the breast and near resolution of any enlarged lymph nodes in the right axilla. She was then consented for bilateral mastectomy. The case was discussed with Oncology as to the axilla. They felt that it would be appropriate to attempt a sentinel lymph node as well as taking the clipped node for frozen section. If these had returned as negative, we would have completed our axillary node dissection. These returned as positive and they recommended a completion axillary node dissection. Risks and benefits were discussed with the patient in detail and she agreed to proceed. DESCRIPTION OF PROCEDURE: The patient was initially seen in preop and then taken to Radiology where she underwent a right breast nuclear medicine injection and wire localization of the previously clipped right axillary node. She then returned to preop where she underwent informed consent. She was then taken to the OR where she was laid supine on the operating room table. SCDs were placed on bilateral lower extremities. Ancef was given in the perioperative period. General anesthesia was induced by Anesthesia without difficulty. Rosa catheter was placed utilizing sterile technique. Bilateral breasts and axillae were prepped and draped in standard sterile fashion. Timeout was performed to verify patient and procedure. I began by marking out the borders of the sternum, the clavicles, the latissimus dorsi in the inframammary folds. Bilateral elliptical incisions were then marked on the breast. We started on the left side, which was the noncancerous side. A 20 mL of 0.5% Marcaine were injected in the area of the planned incisions. Incisions were made with #15 blade. PlasmaBlade was used for hemostasis. I then began forming flaps. I initially moved superiorly to the clavicle, medially to the sternum, inferiorly to the inframammary fold and laterally to the latissimus dorsi. Breast tissue was then gently elevated and the breast tissue was amputated from the underlying pectoralis fascia utilizing the PlasmaBlade. Specimen was marked in the superior and lateral direction, was handed off for permanent pathology. Hemostasis was assured within our flaps. Wound was then gently packed with a moistened lap while we turned our attention to the right breast. We proceeded in the same fashion. A 20 mL of 0.5% Marcaine were injected in the area of the planned incision. Incision was made with #15 blade. PlasmaBlade was used for hemostasis. Flaps were created superiorly to the clavicle, medially to the sternum, inferiorly to the inframammary fold and laterally to the latissimus dorsi. Breast was again amputated from the underlying pectoralis fascia utilizing PlasmaBlade. Specimen was marked in the superior and lateral direction. Before it was handed off, the nipple was interrogated, our highest uptake was approximately 9200 along the breast. Of note, 7 mL of Lymphazurin had been injected in the periareolar area prior to starting the case. We then turned our attention to the right axilla. I initially proceeded with the sentinel lymph node. Neoprobe was brought into the field and the right axilla was interrogated. The sentinel lymph node was quite superficial and was easily identified. It was very soft on palpation. It was dissected free from the surrounding tissues utilizing PlasmaBlade and was immediately handed off to the pathologist who was waiting for frozen section. [address] [address] OPERATIVE REPORT Name: MANOJ POE Room: [address] Bart Nielsen#: [id number] Admission: 04/24/19 Attend Phys: Junie Ferrera DO Discharge: 04/25/19 Date of : 63 Report #: [id number] While he was looking at that lymph node, we continued with our dissection of the previously wire localized clipped lymph node. This was just deep to our previously dissected sentinel lymph node. The entirety of the tissue in this area was grasped using an Allis clamp and was dissected free using the PlasmaBlade. Dr. Peck returned with the findings that the sentinel lymph node appeared to be negative on the frozen section. The wire localized axillary lymph node was then quickly transported to Radiology where mammography was performed and did confirm that we had the clipped node. The clipped node was then handed off again to Dr. Novoa with pathology for frozen section. While we were awaiting his return, the left skin flaps were closed. A 15-Congolese KAIDEN drain was placed through the inferior flap. The flap was saturated with Farhad. The wound was then closed in a layered fashion using deep and superficial stitches of 3-0 Vicryl in inverted interrupted fashion. Skin wound was closed with a running 4-0 Monocryl. At this point, Dr. Novoa did return and advised us that he had identified ongoing lobular carcinoma within the clipped axillary lymph node. At this point, we then proceeded with a completion right axillary node dissection. Allis clamp was used to grasp the axillary fat pad. A small Yanez retractor was placed on the pectoralis. Then, using a combination of very blunt and PlasmaBlade dissection, we began dissecting down into the axilla. I began by following the axillary fat pad to the chest wall. The axillary fat pad was carefully dissected off of the chest wall. The nerve was identified and was protected at all times. This proceeded until I reached the axillary vein. At this point, I was then able to palpate multiple large firm lymph nodes deep within the axilla. This chain of lymph nodes did progress into the chest to the point where I could no longer feel them. The axillary fat pad was completely dissected free from the axillary vein. One small artery and vein were identified and were doubly clipped and ligated. Once the axillary tissue was completely dissected free from the axillary vein, the specimen was then taken to the subcutaneous tissues. At this point, I was able to amputate the entirety of the axillary contents and this was handed off for permanent pathology. There were several small areas of bleeding, which were easily controlled with the PlasmaBlade. The axillary cavity was filled with Farhad. A 15-Congolese ____ KAIDEN drain was brought through an inferior flap and was placed within the axilla. An additional 15-Congolese KAIDEN drain was brought through the inferior flap and was placed within our chest wall flap. This wound was then closed in a layered fashion using deep and superficial stitches of 3-0 Vicryl in inverted interrupted fashion. Skin wound was closed with running 4-0 Monocryl. Skin was then cleansed and covered with skin glue. Surgical bra was placed and was filled with ABD and fluffs. Rosa catheter was removed prior to leaving the operating room. The patient was then allowed to awaken from anesthesia, was extubated and transported to the recovery room with no further difficulties. Counts were correct x 2 at the conclusion of the case. By: [id number] Ferrera, DO /nt
--- NOTE | ~2019-04-24 | H ---
[address] [address] HISTORY AND PHYSICAL Name: MANOJ POE Room: [address] Bart Nielsen#: [id number] Admission: 04/24/19 Attend Phys: Junie Ferrera DO Discharge: 04/25/19 Date of : 63 Report #: [id number] THIS REPORT FOR: //name// Please refer to the History and Physical performed in the physician's office. By: [facility]8Medical Records Staff MICHAEL /FRANCOIS
[2019-04-24 09:22] LABS: HEMATOCRIT 33.3 % (37.0-47.0); HEMOGLOBIN 11.1 gm/dL (12.0-15.0); MCH 28.4 pg (26.0-34.0); MCHC 33.3 g/dL (28.0-37.0); MCV 85.1 fL (80.0-100.0); MPV 9.6 fl. (7.2-11.1); RBC 3.92 mil/uL (4.20-5.00); RDW-CV 15.8 % (10.5-14.5); WBC 6.1 thou/uL (4.0-11.0)
[2019-04-24 09:34] LABS: CALCIUM 8.7 mg/dL (8.5-10.1); CREATININE 0.4 mg/dL (0.6-1.3); POTASSIUM 3.5 mmol/L (3.5-5.1)
[2019-04-24 09:39] LABS: ALBUMIN 3.4 g/dL (3.4-5.0); TOTAL BILIRUBIN 0.5 mg/dL (<0.1-1.0); TOTAL PROTEIN 6.5 g/dL (6.4-8.2)
[2019-04-24 18:46] VITALS: BP 132/70
--- NOTE | 2019-04-24 18:55 | NUR ---
PATIENT ARRIVED TO UNIT AT 1830. ALERT AND ORIENTED X4. ASSESSMENT COMPLETED AND CHARTED. VSS ON ROOM AIR. PAIN IS MINIMAL AND ORAL PAIN MEDICATION GIVEN IN PACU BEFORE TRANSFER TO THE UNIT. PATIENT AND FAMILY ORIENTED TO ROOM AND UNIT. CALL LIGHT PLACED IN REACH AND INSTRUCTED TO USE FOR NEEDS. NURSING WILL CONTINUE TO MONITOR.
[2019-04-24 20:16] VITALS: BP 150/80
[2019-04-25] VITALS (7 sets, daily range): BP systolic 115–154; BP diastolic 60–82
--- NOTE | 2019-04-25 05:41 | NUR ---
SHE RECEIVED OXY 5MG EVERY 4 HOURS FOR PAIN CONTROL. ICE PACKS WERE ON INCISION SITES ALL THROUGH THE SHIFT. HER O2 WAS AT 95% ROOM AIR, CHECKED 4 TIMES THROUGH NIGHT. HER PAIN WAS RATED AT 4/10 AT 0540. SHE HAS NOT REPORTED ANY WORSENING OF PAIN. SHE WAS ABLE TO REST THROUGHOUT THE NIGHT.
--- NOTE | 2019-04-25 12:15 | NUR ---
PT ORDERS RECEIVED AND ACKNOWLEDGED. SPOUSE PRESENT WITH PATIENT. PT INDICATES UP AD CARO IN ROOM W/O DIFFICULTY. PT DEMO ABILITY TO TRANSFER AND GAIT W/O DME INDEP W/O LOB. OVERALL STABLE GAIT AND TRANSFERS. PT AND SPOUSE INDICATE NO CONCERNS W/ DISCHARGE TO HOME. PT'S SPOUSE WILL BE PRESENT UPON DISCHARGE TO HOME TO ASSIST PT WITH ENTRY INTO HOME. NO FURTHER ACUTE PT SERVICES ARE INDICATED AT THIS TIME.
--- NOTE | 2019-04-25 13:15 | NUR ---
INITIAL ASSESSMENT: Pt evaluated for d/c planning needs. Reviewed chart and spoke with nurse, pt and spouse. Pt is alert and oriented. Pt lives in house with spouse and was independent with ADL's prior to admission to the hospital. Pt uses no DME and has not had home health. Received order to arrange home health. Pt does not want home health. She said she and her are able to manage drain care. Pt has follow up appointment with PCP on May 04. No needs indicated.
[2019-04-25] MEDS ORDERED: OXYCODONE HCL 55 MG PO (15:26)
--- NOTE | 2019-04-25 17:10 | NUR ---
DISCHARGE: PATIENT/ EDUCATED ON HOME KAIDEN DRAIN CARE, DISCHARGE WOUND CARE, OXY IR MEDICATION, HOME SELF CARES. QUESTIONS ANSWERED TO SATISFACTION. COPY OF DISCHARGE INSTRUCTIONS GIVEN TO PATIENT, TOOK ORIGINAL SCRIPT TO PHARMACY FOR FILL. IV CATH SITE DISCONTINUED, TIP INTACT, COTTON BALL/TAPE APPLIED TO SITE THIS AM. CHEMO PORT SITE NOTED WNL. SURGICAL INC TO BILAT BREASTS NOTED WELL APPROX, CLOSED, NO S/S INFECTION. GAUZE/ABD PADS IN PLACE OVER SURGICAL SITES, COMPRESSION BRA ON. PATIENT ESCORTED TO AWAITING VEHICLE PER WC W/ NURSING ASST. PATIENT ALERT AND ORIENTED, DENIES OTHER NURSING NEEDS AT THIS TIME. ~TJRN
--- NOTE | 2019-04-28 14:11 | PATH ---
[address] [address] PATHOLOGY RPT PROCEDURE Name: KATHY POEMY RON Room: [address] Bart Nielsen#: [id number] Admission: 04/24/19 Date of : 63 Discharge: 04/25/19 Report #: [id number] Path Case #: [id number] [facility] Accession Number: [id number] . 01 Material submitted: . PART A: lymph node - RIGHT SENTINEL LYMPH NODE - FS. Modifiers: right PART B: lymph node - RIGHT CLIPPED LYMPH NODE - FS. Modifiers: right PART C: breast - LEFT BREAST SUPERIOR SUTURE SHORT/LATERAL SUTURE LONG. Modifiers: left PART D: breast - RIGHT BREAST SUPERIOR SUTURE SHORT/LATERAL SUTURE LONG. Modifiers: right PART E: lymph node - RIGHT AXILLARY LYMPH NODES. Modifiers: right, axillary tail . 01 Clinical history: . Breast cancer. . 02 Frozen section diagnosis: . INTRAOPERATIVE CONSULTATION DIAGNOSES: (Salbador Novoa MD) . A. Right sentinel lymph node (frozen section with touch prep): - One benign lymph node. . B. Right clipped lymph node (frozen section with touch preps): - One lymph node involved by metastatic lobular carcinoma. (ARON:osvaldo; 04/24/2019) . Results are relayed directly to Dr. Rasmussen in the operating room and a note is entered into the medical record. . INTRAOPERATIVE CONSULTATION GROSS DESCRIPTION A. Received fresh from the operating room accompanied by a label marked with "Brielle Baugh Jayne, right sentinel lymph node", is a segment of fatty tissue measuring 3 x 1.[address] Rasmussen requests intraoperative evaluation for the possibility of metastatic breast cancer. The tissues are noted to have blue inked staining and dissection results in a nodule with blue ink in it measuring 0.9 x 0.6 x 0.6 cm. The nodule is bisected, a touch prep prepared, and the bisected segments are submitted for frozen section studies with the remainder of that tissue frozen submitted in cassette A1. The remainder of the entire specimen is submitted in cassette A2. . B. Received fresh from the operating room in a radiology localization container labeled "Brielle Godoy, right clipped lymph node", is a segment of fatty tissue measuring 8 x 3 x 1.5 cm with a localizing needle/wire in it. Dr. Rasmussen requests evaluation for the possibility of any lymph nodes within it. Dissection results in a single firm nodule measuring 2.7 x 2 x 1 cm which appears to have abundant fat within it and also has blue ink staining, and this nodule is serially [place] [address] PATHOLOGY RPT PROCEDURE Name: BRIELLE POE Room: [address] Bart Nielsen#: [id number] Admission: 04/24/19 Date of : 63 Discharge: 04/25/19 Report #: [id number] Path Case #: [id number] preps are prepared of multiple cross sections as B1 and B2 with the remainder of those tissues submitted respectively for frozen section studies as B1 and B2, and the remainder of those tissues subsequently submitted in cassettes B1 and B2. The remainder of the entire specimen is submitted in cassettes B3 through B7. (ARON:osvaldo/rodolfo; 04/24/2019) . . Intraoperative consultation performed at [facility], [address] [place] [address], [place] [address]. BSM/MBR . 03 Diagnosis: A. Right sentinel lymph node: - ONE LYMPH NODE WITH MICROMETASTASIS OF LOBULAR CARCINOMA SPANNING 0.25 MM, CONFINED TO LYMPH NODE (09/16). SEE COMMENT. . B. Right clipped lymph node: - ONE LYMPH NODE WITH METASTATIC LOBULAR CARCINOMA, HIGH-GRADE, SPANNING APPROXIMATELY 27 MM, WITH EXTRANODAL EXTENSION (09/16). SEE COMMENT. . C. Left breast: - Benign breast including skin, with usual ductal epithelial hyperplasia, sclerosing adenosis, fibrosis, duct ectasia, incidental capillary hemangioma and scattered luminal calcifications, negative for atypia. . D. Right breast: - LOBULAR CARCINOMA, HIGH-GRADE (PLEOMORPHIC), FORMING A MASS MEASURING 43 MM X 38 MM X 19 MM IN LOWER OUTER QUADRANT, ASSOCIATED WITH PROMINENT FIBROSIS, WITH ALL SURGICAL MARGINS FREE OF INVOLVEMENT AND CLOSEST (LATERAL NEAR DEEP), LOCATED 1 MM AWAY. - Benign skin. See comment. . E. Right axillary lymph nodes: - TWELVE OF SIXTEEN LYMPH NODES WITH METASTATIC HIGH-GRADE LOBULAR CARCINOMA, WITH MULTIPLE FOCI OF EXTRANODAL EXTENSION (12/16). SEE COMMENT. (ARON:pit; 04/28/2019) QTP/04/28/2019 . 03 Comment: Surgical Pathology Cancer Case Summary Protocol posting date: September 2017 INVASIVE CARCINOMA OF THE BREAST: Procedure ___ Total mastectomy (including nipple-sparing and skin-sparing mastectomy) [place] [address] PATHOLOGY RPT PROCEDURE Name: BRIELLE POE [address]: [address]#: [id number] Admission: 04/24/19 Date of : 63 Discharge: 04/25/19 Report #: [id number] Path Case #: [id number] Specimen Laterality ___ Right + Tumor Site: Invasive Carcinoma + ___ Lower outer quadrant Tumor Size ___ Greatest dimension of largest invasive focus >1 mm: 43 mm + Additional dimensions: 38 mm x 19 mm Histologic Type ___ Invasive lobular carcinoma Histologic Grade ([place] Histologic Score) . Glandular (Acinar)/Tubular Differentiation ___ Score 3 (<10% of tumor area forming glandular/tubular structures) . Nuclear Pleomorphism ___ Score 2 (cells larger than normal with open vesicular nuclei, visible nucleoli, and moderate variability in both size and shape) . Mitotic Rate ___ Score 3 (=8 mitoses per mm2) . Overall Grade ___ Grade 3 (scores of 8 or 9) . + Tumor Focality + ___ Single focus of invasive carcinoma Ductal Carcinoma In Situ (DCIS) ___ Not identified + Lobular Carcinoma In Situ (LCIS) + ___ Present Margins Invasive Carcinoma Margins ___ Uninvolved by invasive carcinoma Distance from closest margin: 1 mm Specify closest margin: Lateral near posterior/deep DCIS Margins ___ No DCIS in specimen Regional Lymph Nodes ___ Involved by tumor cells Number of Lymph Nodes with Macrometastases (>2 mm): 13 Number of Lymph Nodes with Micrometastases (>0.2 mm to 2 mm and/or >200 cells): 1 + Size of Largest Metastatic Deposit (millimeters): Approximately 27 mm + Extranodal Extension: + ___ Present Treatment Effect Treatment Effect in the Breast ___ Probable response to presurgical therapy in the invasive carcinoma Treatment Effect [place] [address] PATHOLOGY RPT PROCEDURE Name: BRIELLE POE Room: [address] Morales#: [id number] Admission: 04/24/19 Date of : 63 Discharge: 04/25/19 Report #: [id number] Path Case #: [id number] ___ Probable response to presurgical therapy in metastatic carcinoma + Lymphovascular Invasion + ___ Not identified + Dermal Lymphovascular Invasion + ___ Not identified . PATHOLOGIC STAGE CLASSIFICATION (pTNM, AJCC 8th EDITION) TNM Descriptors ___ y (posttreatment) Primary Tumor (Invasive Carcinoma) (pT) ___ pT2: Tumor >20 mm but < or = 50 mm in greatest dimension Category (pN) ___ pN3a: Metastases in 10 or more axillary lymph nodes (at least 1 tumor deposit larger than 2.0 mm) or metastases to the infraclavicular (Level III axillary lymph) nodes## . + Additional Pathologic Findings + Specify: Medial calcifications of blood vessels, incidental ductal papilloma. + Ancillary Studies (performed on [id number] B2) ER 95%, OK 70%, Her2 - not over expressed/1+, Ki-67 50%. + Microcalcifications + ___ Present in non-neoplastic tissue + ___ Present in invasive carcinoma + Clinical History + ___ Other: Previous right breast 10:00, 8 cm from nipple image guided core biopsy showing pleomorphic lobular carcinoma spanning at least 11 mm and right axillary node image guided core biopsy showing metastatic high-grade carcinoma spanning at least 11 mm ([id number] B and A), performed around 09/25/2018 with subsequent chemotherapy prior to bilateral mastectomies. . In the frozen section studies, touch prep as well as permanent sections of A1 no recognizable malignancy is seen; however, a properly controlled keratin AE1/AE3 stain highlights an aggregate consistent with a micrometastasis spanning 0.25 mm. In the many positive lymph nodes identified in subsequent specimens, including the "right clip lymph node" (B) and multiple right axillary nodes (E), many show extranodal extension of neoplasm. Evidence of prior biopsy is seen in one of the lymph nodes (E11) and fibrosis within a lymph node also showing residual tumor (E10) is consistent with therapy changes. The tumor seen in the right breast is interpreted as a single focus in which many larger and smaller aggregates as well as individual cells and cords of neoplastic cells are present in association with fibrosis, attributable to therapy. Infiltrating high-grade tumor are seen in each of slides D5, D7 through D9 and D11 through D14. The closest approximation of tumor to the lateral, near posterior margin is seen in D11. . . [address] [address] PATHOLOGY RPT PROCEDURE Name: BRIELLE POE Room: [facility] Bart Nielsen#: [id number] Admission: 04/24/19 Date of : 63 Discharge: 04/25/19 Report #: [id number] Path Case #: [id number] (ARON:pit; 04/28/2019) . 03 Electronically signed: . Salbador Novoa MD, Pathologist NPI- [id number] . 01 Gross description: . A, B. PLEASE SEE FROZEN SECTION GROSS DESCRIPTION. . C. Received in formalin labeled "Brielle Poe, left breast-superior suture short" and further labeled on the requisition as "lateral suture long" is a simple mastectomy specimen weighing 773 g and measuring 20.1 cm from superior to inferior, 17.0 cm from medial to lateral, and 6.5 cm from anterior to posterior. The anterior aspect displays an ellipse of nix-white skin measuring 14.6 x 8.5 x 0.3 cm. The skin displays a centrally located everted nipple measuring 1.3 x 1.0 x 0.8 cm. No induration or retraction is identified. The superior half of the anterior soft tissue margin is inked blue, the inferior half is inked green, and the deep/posterior fascia margin is inked black. The specimen is serially sectioned to reveal no masses or lesions, and the cut surface is comprised of 60% yellow lobulated adipose tissue and 40% dense white fibrous tissue. Prob[employer] sections are submitted as follows: C1 upper outer quadrant C2 lower outer quadrant C3 lower inner quadrant C4 upper inner quadrant C5 patient accounting representative skin C6 nipple, serially sectioned [place] [address] and placed in formalin at 1324 on April 24, 2019. The specimen is removed from formalin at 1850 on April 26, 2019. . D. Received in formalin labeled "Brielle Poe, right breast-short suture superior, lateral long suture" is a simple mastectomy specimen weighing 742 g and measuring 21.8 cm from superior to inferior, 17.5 cm from medial to lateral, and 8.0 cm from anterior to posterior. The anterior aspect displays an ellipse of nix-white skin measuring 16.7 x 8.2 x 0.3 centimeters. The skin displays a centrally located everted nipple measuring 1.2 x 1.0 x 0.5 cm. No induration or retraction is identified. The superior half of the anterior soft tissue margin is inked blue, the inferior half is inked green, and the deep/posterior fascia margin is inked black. The specimen is serially sectioned to reveal a nix-white firm nodular mass in the lower outer quadrant measuring 4.3 cm from medial to lateral, 3.8 cm from superior to inferior, and 1.9 cm from anterior to posterior. The mass is located to the margins as follows: Less than 0.1 cm from lateral (inked orange) 11.0 cm to medial, 10.5 cm to superior, 6.2 cm to inferior, 0.3 cm to posterior, and 0.4 cm to anterior. The mass is located 0.7 cm from the closest approach to the skin. The mass is located at 7:00-9:00, 7.5 cm from the nipple. [place] [address] PATHOLOGY RPT PROCEDURE Name: BRIELLE POE Room: [address] Bart Nielsen#: [id number] Admission: 04/24/19 Date of : 63 Discharge: 04/25/19 Report #: [id number] Path Case #: [id number] identified. The remainder of the breast parenchyma is 60% yellow and lobulated and 40% dense nix-white and fibrous. No intramammary lymph nodes are grossly identified. Prob[employer] Patrol Agent sections of the specimen are submitted as follows: D1 upper outer quadrant D2 lower outer quadrant D3 lower inner quadrant D4 upper inner quadrant D5 mass to closest skin D6 nipple, serially sectioned D7-D12 perpendicular sections of lesion to lateral, anterior, and posterior margins (at 9:00) D13-D14 additional patient accounting representative sections of mass with possible biopsy site . The specimen is removed from the patient at 1358 and placed in formalin at 1401 on April 24, 2019. The specimen is removed from formalin at 1850 on April 26, 2019. . E. Received in formalin labeled "Gramlich, Brielle, right axillary lymph nodes" is a 10.9 x 7.9 x 4.5 cm aggregate of nix-yellow lobulated fibroadipose tissue. The specimen is palpated to reveal 15 palpable lymph node ranging from 0.5-3.3 cm in greatest dimension. Prob[employer] sections of the specimen are submitted as follows: E1 three whole possible lymph nodes E2-E3 one lymph node in each cassette, serially sectioned E4-E12 patient accounting representative sections of one grossly positive lymph node in each cassette E13-E16 one lymph node, serially sectioned and divided between four cassettes (submitted entirely) ([facility]; 04/26/2019) SYC/SYC . 03 Pathologist provided ICD-10: C50.911, C77.3, N60.22, N60.32 . 03 CPT . 884164, 324629, 354257, U21282, 764071, 246034, 874574 Specimen Comment: A courtesy copy of this report has been sent to Specimen Comment: [phone], , . Specimen Comment: Report sent to DR RASMUSSEN,DR BURGESS / DR GATES Performed at: [address], [place], [place] [id number] MD Avelino Matthews MD Phone: [phone] Performed at: 02 [facility] [address] [place] [id number] MD Salbador Novoa MD Phone: [phone] Performed at: 03 [facility] [address] [facility] [place] [address] PATHOLOGY RPT PROCEDURE Name: BRIELLE POE Room: [address] M.R.#: [id number] Admission: 04/24/19 Date of : 63 Discharge: 04/25/19 Report #: [id number] Path Case #: [id number] [facility] [address] [place] [id number] MD Salbador Novoa MD Phone: [phone]
== END 2019-04-25 17:10 | disposition home or self-care (01) ==
LOC: M.SUR 08:31 → M.RAD 09:30 → M.SUR 09:30 → EDSTATUS 09:30 → M.SUR 10:30 → M.TBA 14:08 → M.ORTHSURG 18:35
PROVIDERS: Anesthesiology; ADMIT Surgery
DX: C50.911 Malignant neoplasm of unspecified site of right female breast (principal); C50.912 Malignant neoplasm of unspecified site of left female breast; D70.9 Neutropenia, unspecified; R50.9 Fever, unspecified; C77.3 Secondary and unspecified malignant neoplasm of axilla and upper limb lymph nodes; Z79.899 Other long term (current) drug therapy

== ENCOUNTER → 2019-05-21 | Day surgery (SDC) | payer OTHER ==
[~2019-05-21] MED LIST changes: +OXYCODONE HCL 55 MG PO; +ULTRAM 50MG TAB50 MG PO
--- NOTE | 2019-05-21 11:56 | EKG ---
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
--- NOTE | 2019-05-21 13:25 | OP ---
[address] [address] OPERATIVE REPORT Name: MANOJ POE Room: [facility].#: [id number] Admission: 05/21/19 Attend Phys: Junie Ferrera DO Discharge: Date of : 63 Report #: [id number] THIS REPORT FOR: //name// CC: Junie Kaminskia Rhodes DICTATED BY: Babita Paige DO DATE OF SERVICE: 05/21/2019 PREOPERATIVE DIAGNOSIS: Status chemo port. POSTOPERATIVE DIAGNOSIS: Status chemo port. PROCEDURE PERFORMED: Removal of chemo port. PRIMARY SURGEON: Junie Ferrera DO HEAD OF GLOBAL STRATEGIC PARTNERSHIPS: Babita Paige DO, PGY-2 SECOND SUPERVISOR BROADLOOM: José, medical student. ANESTHESIA: MAC and local. ESTIMATED BLOOD LOSS: 3. SPECIMENS REMOVED: None. INDICATION FOR PROCEDURE: The patient is a very pleasant 54-year-old female known to us from prior encounters. She has a history of metastatic breast cancer. She is status post bilateral mastectomy and full axillary lymph node dissection. She has been following with Oncology and has no plans for further chemotherapy, so we planned for removal of chemo port. DESCRIPTION OF PROCEDURE: Informed consent was obtained. The patient was taken to the operating room and placed supine on the operating room table. Monitored anesthesia care was then induced without difficulty. SCDs were placed on bilateral lower extremities. The patient received preoperative antibiotics. Her left neck was prepped and draped in the standard sterile fashion. Timeout was performed to ensure correct patient and procedure. We began by injecting approximately 10 mL of 0.5% Marcaine at the previous incision site from chemo port placement. A 4-cm incision was made using a #15-blade scalpel through our previous incision from placement of chemo port. Incision was carried down to the subcutaneous tissue using electrocautery. Combination of blunt dissection and electrocautery was used to dissect down to the level of the fascia where our sutures were holding port in place. The two sutures on [place] [address] OPERATIVE REPORT Name: DEEPIKAMANOJ RON Room: [facility]#: [id number] Admission: 05/21/19 Attend Phys: Junie Ferrera DO Discharge: Date of : 63 Report #: [id number] port were clipped to free up our port. Once the port was free from any surrounding adhesions, the catheter was then removed from the internal jugular vein. Direct firm pressure was held on the internal jugular vein for approximately 10 minutes. Chemo port was removed and inspected to ensure that it was intact. The tip of the catheter was still present. The entire port was intact. It was passed off as a specimen. Surgical site was inspected to ensure hemostasis. The subcutaneous tissue was then closed using 3-0 Vicryl suture in a simple interrupted and inverted fashion. The skin was closed using 4-0 Monocryl suture in a running subcuticular fashion. An additional 10 mL of 0.5% Marcaine were injected for a total of 20 mL of 0.5% Marcaine. Incision was cleansed and dried. Sterile dressings were applied using Mastisol, Steri-Strips, 4 x 4's, and a Tegaderm. The patient tolerated the procedure very well. She was then transferred to the PACU in stable condition with plans to discharge home later today. <ELECTRONICALLY SIGNED> By: Junie Fererra DO 05/21/19 1325 1231 1302Cmarian Ferrera DO /nt
== END | disposition home or self-care (01) ==
LOC: M.SUR 08:06
DX: Z45.2 Encounter for adjustment and management of vascular access device (principal); Z85.3 Personal history of malignant neoplasm of breast; Z88.8 Allergy status to other drugs, medicaments and biological substances; Z79.899 Other long term (current) drug therapy

== ENCOUNTER 2019-07-16 19:38 | Emergency (ER) | payer OTHER ==
[~2019-07-16] VITALS: Ht 165.1 cm; Wt 96.6 kg
[2019-07-16] MEDS ORDERED: PERCOCET 7.5-31 EAC1 PO (23:11)
[2019-07-16 23:28] VITALS: BP 168/80
== END 2019-07-16 23:29 | disposition home or self-care (01) ==
LOC: M.ERS 19:38
DX: M25.512 Pain in left shoulder (principal); M79.89 Other specified soft tissue disorders; I10 Essential (primary) hypertension; Z90.13 Acquired absence of bilateral breasts and nipples; Z85.3 Personal history of malignant neoplasm of breast; Z88.8 Allergy status to other drugs, medicaments and biological substances